=== PATIENT | male | born 2005 | race Caucasian/White ===

== ENCOUNTER 2024-12-20 21:31 | Emergency (ER) | payer OTHER, SELFPAY ==
[2024-12-20 21:34] VITALS: BP 121/77; PULSE 110; RESP 18; TEMP 36.7; O2SAT 98; BMI 25.8
--- NOTE | 2024-12-20 21:52 | ED.WOUNDLAC ---
HPI - Wound/Laceration General Date Seen: 12/20/24 Chief Complaint: Laceration/Wound Stated Complaint: wound on chin Time Seen by Provider: 12/20/24 21:58 Source: patient Mode of arrival: ambulatory Limitations: no limitations History of Present Illness HPI narrative: Patient is a 19-year-old male presenting to the emergency department for laceration to his left hand. States he is the best will prior to arrival when a friend accidentally elbowed him in the chin. Denies any loss of consciousness. Denies any jaw pain. States he was up-to-date with vaccinations as a child. No other concerns noted. Related Data Home Medications ?Medication ?Instructions ?Recorded ?Confirmed No Known Home Medications 12/20/24 12/20/24 Allergies Allergy/AdvReac Type Severity Reaction Status Date / Time mold Allergy Unknown Verified 12/20/24 21:36 Review of Systems Narrative: Pertinent systems reviewed and were negative unless stated in HPI Exam Narrative: Exam Narrative: Const: Well-nourished, Well-developed, in no distress Eyes: PERRL, no conjunctival injection, and symmetrical lids. 1 cm laceration to the left side of his chin. HENT: Atraumatic external nose and ears. Moist mucous membranes. MSK:Extremities w/o deformity, Normal Active ROM Skin: Warm, Dry. No rashes or lesions. Neuro: Normal Muscle tone, No focal neurological deficits. Psych: Awake, Alert, & Oriented x3. Appropriate mood and affect. Const: Vital Signs, click to edit/add: Vital Signs - 24 hr 12/20/24 21:34 Temperature 98.0 F Pulse Rate [Pulse Oximeter] 110 H Respiratory Rate 18 Blood Pressure [Ri ght Upper Arm] 121/77 Pulse Oximetry 98 Oxygen Delivery Me thod Room Air Course Vital Signs Vital signs: Initial Vital Signs Temperature 98.0 F 12/20/24 21:34 Temperature Source Temporal Artery Scan 12/20/24 21:34 Pulse Rate 110 H 12/20/24 21:34 Respiratory Rate 18 12/20/24 21:34 Blood Pressure 121/77 12/20/24 21:34 Blood Pressure Mean 91 12/20/24 21:34 Blood Pressure Position Sitting 12/20/24 21:34 Pulse Oximetry 98 12/20/24 21:34 Oxygen Delivery Method Room Air 12/20/24 21:34 Vital Signs Temperature 98.0 F 12/20/24 21:34 Pulse Rate 110 H 12/20/24 21:34 Respiratory Rate 18 12/20/24 21:34 Blood Pressure 121/77 12/20/24 21:34 Pulse Oximetry 98 12/20/24 21:34 Oxygen Delivery Method Room Air 12/20/24 21:34 Temperature 98.0 F 12/20/24 21:34 Pulse Rate 110 H 12/20/24 21:34 Respiratory Rate 18 12/20/24 21:34 Blood Pressure 121/77 12/20/24 21:34 Pulse Oximetry 98 12/20/24 21:34 Oxygen Delivery Method Room Air 12/20/24 21:34 MDM - Wound/Laceration MDM Narrative Medical decision making narrative: Patient is a 19-year-old male presenting for laceration to his chin. He is up-to-date in his vaccinations. Laceration does look amenable to either skin glue or stitches. At this time the patient prefers to glue it. I do not believe imaging is necessary. He tolerated the procedure well. Discharge Plan Discharge Clinical Impression: Laceration Patient Disposition: Home, Self-Care Condition: Stable Additional Instructions: Do not using topical antibiotics. That will dissolve the glue quicker. Antibiotics not necessary at this time. Return to emergency department for new or worsening symptoms. Prescriptions: No Action No Known Home Medications Stand Alone Forms: MyHealth Info Instructions Procedures Laceration Chin: Site: face (Chin) Side (If applicable): left Size (cm): 1 Description: linear Depth: simple, single layer Pre-repair: wound explored, irrigated extensively and deep structures intact Skin layer closed with: other (Dermabond)
== END 2024-12-20 22:38 | disposition home or self-care (01) ==
LOC: ED 22:09
PROVIDERS: Emergency Provider Student in an Organized Health Care Education/Training Program
DX: S01.81XA Laceration without foreign body of other part of head, initial encounter (principal); W50.0XXA Accidental hit or strike by another person, initial encounter
CPT/HCPCS: 12011; 99282; 99283